=== PATIENT | male | born 1995 | race Two or more races ===

== ENCOUNTER 2021-04-02 02:09 | Emergency (ER) | payer MEDICAID ==
[~2021-04-02] VITALS: Ht 167.6 cm; Wt 72.7 kg
[2021-04-02] MEDS ORDERED: IBUPROFEN 400 MG TABLET PO ONE (03:15)
[2021-04-02] MEDS ORDERED: ACETAMINOPHEN 325 MG TABLET PO ONE (03:15)
[2021-04-02] MEDS ORDERED: KETAMINE HCL 50 MG/ML 10 ML VIAL IVP ONE (03:45)
[2021-04-02 04:26] LABS: COVID AG,FIA SOURCE NASOPHARYNGEAL
[2021-04-02 04:29] LABS: BASOPHILS % (AUTO) 0.3 % (0.0-2.0); EOSINOPHILS % (AUTO) 0.2 % (1.0-6.0); HEMOGLOBIN 16.5 g/dL (13.5-17.5); LYMPHOCYTES % (AUTO) 7.2 % (22.0-44.0); MEAN CORPUSCULAR HEMOGLOBIN 33.7 pg (26.0-34.0); MEAN CORPUSCULAR HGB CONC 35.8 G/dL (31.0-37.0); MEAN CORPUSCULAR VOLUME 94 fL (80-100); MONOCYTES # (AUTO) 0.6 K/uL (0.1-1.0); MONOCYTES % (AUTO) 4.1 % (2.0-9.0); NEUTROPHILS % (AUTO) 88.2 % (40.0-70.0); PLATELET COUNT (AUTO) 270 K/uL (150-450); RED BLOOD CELL COUNT(AUTO) 4.89 MIL/uL (4.50-5.90); RED CELL DISTRIBUTION WIDTH 12.1 % (11.5-14.5)
[2021-04-02 04:50] LABS: ANION GAP 14 mmol/L (8-16); CALCIUM, TOTAL 8.6 mg/dL (8.8-10.5); CARBON DIOXIDE 24 mmol/L (22-29); CHLORIDE 104 mmol/L (98-107); CREATININE 0.89 mg/dL (0.60-1.30); GLOMERULAR FILTR. RATE CALC > 60 mL/min (>60); GLUCOSE,RANDOM 133 mg/dL (70-110); POTASSIUM 3.9 mmol/L (3.5-5.1); SODIUM SERUM 142 mmol/L (136-145); UREA NITROGEN, BLOOD 10 mg/dL (7-18)
[2021-04-02 04:55] LABS: ALANINE AMINOTRANSFERASE 77 U/L (12-78); ALBUMIN 4.5 g/dL (3.4-5.0); ALKALINE PHOSPHATASE 94 U/L (46-116); ASPARTATE AMINOTRANSFERASE 32 U/L (15-37); BILIRUBIN,TOTAL 0.8 mg/dL (0.1-1.0); TOTAL PROTEIN, SERUM 7.9 g/dL (6.4-8.2)
[2021-04-02] MEDS ORDERED: HYDROmorphone 2 MG/ML VIAL IVP ONE (07:30)
[2021-04-02 08:45] VITALS: BP 136/77
== END 2021-04-02 09:23 | disposition home or self-care (01) ==
LOC: EMS 02:14
DX: S82.852A Displaced trimalleolar fracture of left lower leg, initial encounter for closed fracture (principal); S93.05XA Dislocation of left ankle joint, initial encounter; Z20.822 Contact with and (suspected) exposure to COVID-19; X50.1XXA Overexertion from prolonged static or awkward postures, initial encounter; Y93.89 Activity, other specified; Y92.89 Other specified places as the place of occurrence of the external cause; Y99.8 Other external cause status
CPT/HCPCS: 27818; 36415; 73590; 73610; 73630; 73700; 80053; 85025; 87426; 96374; 99285; G0480; J1170; J3490

== ENCOUNTER 2021-04-04 16:40 | Emergency (ER) | payer MEDICAID ==
[~2021-04-04] VITALS: Ht 170.2 cm; Wt 90.9 kg
[2021-04-04] MEDS ORDERED: HYDROCODONE/ACETAMINOPHEN 5-325 MG TABLET PO ONE (17:30)
[2021-04-04] MEDS ORDERED: FentaNYL CITRATE PF 100 MCG/2 ML VIAL IVP ONE ×2 (18:15→19:15)
[2021-04-04 20:04] VITALS: BP 134/74
== END 2021-04-04 20:46 | disposition home or self-care (01) ==
LOC: EMS 16:58
DX: S82.852A Displaced trimalleolar fracture of left lower leg, initial encounter for closed fracture (principal); X58.XXXA Exposure to other specified factors, initial encounter; Y93.89 Activity, other specified; Y92.89 Other specified places as the place of occurrence of the external cause; Y99.8 Other external cause status; Z46.89 Encounter for fitting and adjustment of other specified devices
CPT/HCPCS: 27818; 73610; 99284; J3010; 29515; 96374; 96376